=== PATIENT | female | born 1940 | race Caucasian/White ===

== ENCOUNTER 2017-08-27 06:58 | Emergency (ER) | payer MEDICARE, MEDICAID ==
--- NOTE | 2017-08-27 07:08 | Emergency Department Record ---
History of Present Illness - General Stated Complaint: FALL, SHOULDER PAIN Time Seen by Provider: 08/27/17 07:02 Source: EMS Mode of Arrival: EMS Limitations: No limitations - History of Present Illness Initial Comments: 76 yo female presents to ED following an unwitnessed fall in the shower. Patient reports pain to the left shoulder following her fall. Patient denies LOC or neck pain, refused cervical collar on examination. Patient reports pain to the medial left knee as well. Patient denies numbness, tingling, or focal weakness symptoms. MD Complaint: Fall Onset/Timin -: Minutes(s) When Fall Occurred: 1 hour [employer] Fall Witnessed: No Place Fall Occurred: Home Loss of Consciousness: None Prolonged Down Time?: No Symptoms Prior to Fall: None Location - Extremities: Left: Shoulder Severity: Moderate Quality: Aching - [place] Coma Scale Eye Response: (4) Open spontaneously Motor Response: (6) Obeys commands Verbal Response: (5) Oriented [place] Total: 15 - Related Data Home Medications Medication Instructions Recorded Confirmed Last Taken Albuterol Sulfate [Ventolin Hfa] 1 - 2 puff IH .EVERY 4-6 HOURS PRN 08/27/17 Unknown Amlodipine Besylate [Norvasc] 5 mg PO DAILY 08/27/17 08/27/17 Unknown Aspirin [Aspirin EC] 81 mg PO DAILY 08/27/17 08/27/17 Unknown Atorvastatin Calcium [Lipitor] 20 mg PO DAILY 08/27/17 08/27/17 Unknown Budesonide/Formoterol Fumarate 2 puff IH DAILY 08/27/17 08/27/17 Unknown [Symbicort 160-4.5 Mcg Inhaler] Cholecalciferol (Vitamin D3) 1,000 unit PO DAILY 08/27/17 08/27/17 Unknown [Vitamin D3] Colestipol HCl 1 gm PO BID 08/27/17 08/27/17 Unknown Docusate Sodium [Colace] 100 mg PO DAILY 08/27/17 08/27/17 Unknown Duloxetine HCl [Cymbalta] 60 mg PO DAILY 08/27/17 08/27/17 Unknown Ezetimibe [Zetia] 10 mg PO DAILY 08/27/17 08/27/17 Unknown Hydrochlorothiazide 25 mg PO DAILY 08/27/17 08/27/17 Unknown Insulin Aspart [Novolog] 1 unit SQ ASDIR 08/27/17 08/27/17 Unknown Insulin Detemir [Levemir] 60 units SQ DAILY 08/27/17 08/27/17 Unknown Ipratropium [place] [Atrovent Hfa] 2 puff IH TID 08/27/17 08/27/17 Unknown Isosorbide Dinitrate 5 mg PO BID 08/27/17 08/27/17 Unknown Levothyroxine Sodium [Synthroid] 25 mcg PO DAILY 08/27/17 08/27/17 Unknown Lisinopril 40 mg PO DAILY 08/27/17 08/27/17 Unknown Loratadine 10 mg PO DAILY 08/27/17 08/27/17 Unknown Mirabegron [Myrbetriq] 50 mg PO DAILY 08/27/17 08/27/17 Unknown Montelukast Sodium 10 mg PO DAILY 08/27/17 08/27/17 Unknown Multivitamin/Iron/Folic Acid 1 tab PO DAILY 08/27/17 08/27/17 Unknown [Centrum] Pramipexole Di-HCl [Mirapex] 0.25 mg PO QHS 08/27/17 08/27/17 Unknown Quetiapine Fumarate [Quetiapine 50 mg PO DAILY 08/27/17 08/27/17 Unknown Fumarate ER] Warfarin Sodium [Coumadin] 5 mg PO ASDIR 08/27/17 08/27/17 08/24/17 Warfarin Sodium [Coumadin] 7.5 mg PO ASDIR 08/27/17 08/27/17 08/24/17 Previous Rx's Medication Instructions Recorded Hydrocodone/Acetaminophen [Curlew 1 each PO Q8H PRN #15 tablet 08/27/17 5-325 Tablet] Allergies Allergy/AdvReac Type Severity Reaction Status Date / Time No Known Drug Allergies Allergy Verified 08/27/17 07:25 Review of Systems Constitutional: Denies: Chills, Fever, Malaise, Night sweats Eyes: Denies: Eye discharge, Eye pain ENT: Denies: Congestion, Ear pain, Epistaxis Respiratory: Denies: Cough, Dyspnea Cardiovascular: Denies: Chest pain, Dyspnea on exertion Endocrine: Denies: Fatigue, Heat or cold intolerance Gastrointestinal: Denies: Abdominal pain, Nausea, Vomiting Genitourinary: Denies: Incontinence, Retention Musculoskeletal: Reports: Arthralgia. Denies: Back pain, Gout, Joint swelling Skin: Denies: Bruising, Change in color Neurological: Denies: Abnormal gait, Confusion, Headache, Seizure Psychiatric: Denies: Anxiety Hematological/Lymphatic: Denies: Anemia, Blood Clots Physical Exam - General General Appearance: Alert, Oriented x3, Cooperative, Moderate distress Limitations: No limitations - Head Head exam: Atraumatic, Normocephalic, Normal inspection Head exam detail: negative: Abrasion, Contusion, Hernández's sign, General tenderness, Hematoma, Laceration - Eye Eye exam: Normal appearance, Conjunctival injection (left eye). negative: Periorbital swelling, Periorbital tenderness, Scleral icterus - ENT Ear exam: negative: Auricular hematoma, Auricular trauma Nasal Exam: negative: Active bleeding, Discharge, Dried blood, Foreign body Mouth exam: negative: Drooling, Laceration, Muffled voice, Tongue elevation - Neck Neck exam: Normal inspection, Other (patient refuses cervical collar on examination). negative: Meningismus, Tenderness - Respiratory Respiratory exam: Normal lung sounds bilaterally. negative: Rales, Respiratory distress, Rhonchi, Stridor - Cardiovascular Cardiovascular Exam: Regular rate, Normal rhythm, Normal heart sounds - GI/Abdominal GI/Abdominal exam: Soft. negative: Rebound, Rigid, Tenderness - Rectal Rectal exam: Deferred - exam: Deferred - Extremities Extremities exam: Other (Abrasion to the left knee). negative: Calf tenderness , Pedal edema, Tenderness - Back Back exam: Denies: CVA tenderness (R), CVA tenderness (L) - Neurological Neurological exam: Alert, Oriented X3. negative: CN II-XII intact, Motor sensory deficit - Psychiatric Psychiatric exam: Normal affect, Normal mood - Skin Skin exam: Normal color. negative: Abrasion Type of lesion: negative: abrasion Course - Reevaluation(s) Reevaluation #1: 08/27/17 07:24 repeat BP 98/44. Reevaluation #2: 08/27/17 07:36 EKG: NSR 68 IVCD, RBBB No acute ST-T wave changes Reevaluation #3: 08/27/17 07:57 Labs reviewed, INR 1.08, BUN 30 (at baseline), and are grossly unremarkable for an acute process. Reevaluation #4: 08/27/17 08:14 CT Brain: Chronic changes, nothing acute CT Cervical Spine: Degenerative changes, nothing acute Left shoulder: Proximal humerus fracture, non-displaced Left Knee: No acute process. Medical Decision Making - Lab Data Result diagrams: 08/27/17 07:15 08/27/17 07:15 Disposition Disposition: Discharge Clinical Impression: Multiple contusions Proximal humerus fracture Qualifiers: Encounter type: initial encounter Fracture type: closed Fracture morphology: unspecified fracture morphology Laterality: left Qualified Code(s): S42.202A - Unspecified fracture of upper end of left humerus, initial encounter for closed fracture Fall Qualifiers: Encounter type: initial encounter Qualified Code(s): W19.XXXA - Unspecified fall, initial encounter Disposition: Home, Self-Care Condition: (2) Stable Instructions: Proximal Humerus Fracture (ED) Additional Instructions: Return to ED if your symptoms worsen or if you have any concerns. Curlew 5 mg tablets every 8 hours as needed for pain symptoms. Follow-up with your family doctor in 3-5 days as directed. Prescriptions: Hydrocodone/Acetaminophen [Curlew 5-325 Tablet] 1 each PO Q8H PRN #15 tablet PRN Reason: Pain - Severe (8-10) Referrals: KARIN CROW [DOCTOR OF OSTEOPATH] - [facility] [Provider Group] Forms: Patient Portal Access Time of Disposition: 08:17 Quality - Quality Measures Quality Measures: N/A - Blood Pressure Screening Does Patient Have Any of the Following: No Blood Pressure Classification: Normal BP Reading Systolic Measurement: 101 Diastolic Measurement: 36 Screening for High Blood Pressure: < Normal BP, F/U Not Required > [G8783]
[2017-08-27] MEDS ORDERED: FENTANYL PF 100MCG/2ML VIAL IVP ONE (07:11)
[2017-08-27 07:22] LABS: BASO % 0.5 % (0-6); EOS % 0.8 % (0-6); GRAN % 61.4 % (47-80); HEMATOCRIT 37.6 % (35.0-47.0); HEMOGLOBIN 11.7 gm/dl (11.6-16.0); LYMPH % 28.6 % (16-45); MEAN CELL VOLUME 96.9 fl (81-97); MEAN CORPUSCULAR HEMOGLOBIN 30.2 pg (27-33); MEAN CORPUSCULAR HGB CONC 31.1 g/dl (32-36); MEAN PLATELET VOLUME 11.5 fl (7.4-10.4); MONO % 8.7 % (0-9); PLATELET COUNT 241 K/uL (130-400); RED BLOOD COUNT 3.88 M/uL (3.80-5.40); RED CELL DISTRIBUTION WIDTH 14.6 % (11.5-14.5); WHITE BLOOD COUNT W/O DIFF 8.4 K/uL (4.2-12.2)
[2017-08-27] MEDS ORDERED: 0.9 % SODIUM CHLORIDE 1000ML 500 ML IV SCH (07:30)
[2017-08-27 07:31] LABS: BLOOD UREA NITROGEN 30 mg/dL (8-23); CREATININE 0.9 mg/dL (0.5-0.9); EST GLOMERULAR FILTRATION RATE > 60 mL/min
[2017-08-27 07:32] LABS: TOTAL PROTEIN 6.9 g/dL (6.6-8.7)
[2017-08-27 07:33] LABS: INR 1.08; PROTHROMBIN TIME (PATIENT) 11.7 SECONDS (9.5-12.1)
[2017-08-27 07:34] LABS: GLUCOSE,RANDOM 210 mg/dL (74-109)
[2017-08-27 07:37] LABS: ALB/GLOB RATIO 1.2 (1.1-1.8); ALBUMIN 3.8 g/dL (4.0-5.0); ALKALINE PHOSPHATASE 64 U/L (35-104); ALT/SGPT 18 U/L (<33); AST/SGOT 18 U/L (10.0-35.0)
[2017-08-27] MEDS ORDERED: HYDROCODONE/APAP 5/325MG TABLET PO ONE (08:30)
--- NOTE | 2017-08-27 09:22 | CT SCAN REPORT ---
EXAM: CT SCAN CERVICAL SPINE WO CONTRAST HISTORY: FALL. TECHNIQUE: Axial CT images of the cervical spine with coronal and sagittal reconstructions. COMPARISON: None. FINDINGS: Evaluation of the spinal canal contents is limited due to CT technique. Vertebral body height is preserved. Minor anterolisthesis of C5 with respect to C6 likely on a degenerative basis. Alignment is otherwise preserved. Degenerative changes throughout the cervical spine. Surrounding soft tissues show vascular calcifications but are otherwise unremarkable. IMPRESSION: NO CT EVIDENCE FOR ACUTE C-SPINE ABNORMALITY. DEGENERATIVE CHANGE, ABOVE. JOB NUMBER: [id number] MTDD
--- NOTE | 2017-08-27 09:23 | RADIOLOGY REPORT ---
EXAM: SHOULDER, LEFT HISTORY: FALL. TECHNIQUE: Four-view left shoulder. COMPARISON: None. ENCOUNTER: Initial. FINDINGS: There is a comminuted, mildly displaced fracture deformity of the humeral neck with involvement of the greater tuberosity and extension of the fracture lines to the superior aspect of the humeral head. No definitive dislocation. Advanced degenerative changes. Osteopenia. IMPRESSION: COMMINUTED, MILDLY DISPLACED FRACTURE OF THE PROXIMAL HUMERAL NECK/ HEAD. JOB NUMBER: [id number] MTDD
--- NOTE | 2017-08-27 09:25 | RADIOLOGY REPORT ---
EXAM: KNEE, LEFT 3 VIEWS HISTORY: FALL. TECHNIQUE: Four-view left knee. COMPARISON: None. ENCOUNTER: Initial. FINDINGS: Osteopenia. Negative for acute fracture or dislocation. Mild degenerative changes. Vascular calcification. IMPRESSION: OSTEOPENIA WITH MILD DEGENERATIVE CHANGE. JOB NUMBER: [id number] MTDD
--- NOTE | 2017-08-27 09:28 | CT SCAN REPORT ---
EXAM: CT SCAN HEAD WO CONTRAST HISTORY: FALL. TECHNIQUE: CT of the brain without contrast. COMPARISON: None. FINDINGS: Globes are intact. Mucosal thickening of the ethmoid air cells. No displaced or depressed skull fracture. No intra- or extra-axial hemorrhage. CT is limited for evaluation of acute infarct. No CT evidence for large or territorial acute infarct. No mass or midline shift. Diffuse atrophy. Small vessel ischemic change. Age-indeterminate lacunar infarct of the left thalamus measuring 5.3 mm. Remote-appearing lacunar infarcts of the basal ganglia bilaterally. IMPRESSION: ATROPHY. SMALL VESSEL ISCHEMIC CHANGE. REMOTE-APPEARING LACUNAR INFARCTS OF THE BILATERAL BASAL GANGLIA. AGE-INDETERMINATE LACUNAR INFARCT, LEFT THALAMUS. JOB NUMBER: [id number] MTDD
== END 2017-08-27 09:22 | disposition home or self-care (01) ==
LOC: ER 06:58
DX: S42.292A Other displaced fracture of upper end of left humerus, initial encounter for closed fracture (principal); S80.02XA Contusion of left knee, initial encounter; M54.2 Cervicalgia; I10 Essential (primary) hypertension; E11.9 Type 2 diabetes mellitus without complications; Z79.4 Long term (current) use of insulin; Z79.01 Long term (current) use of anticoagulants; W18.2XXA Fall in (into) shower or empty bathtub, initial encounter; Y93.F1 Activity, caregiving, bathing; Y92.121 Bathroom in nursing home as the place of occurrence of the external cause
CPT/HCPCS: 99284 ×2; 85025; 85610; 80053; 73562; 73030; 72125; 70450; J3010

== ENCOUNTER 2017-12-16 09:07 | Emergency (ER) | payer MEDICARE, MEDICAID ==
[2017-12-16] MEDS ORDERED: 0.9 % SODIUM CHLORIDE 1000ML 1,000 ML IV PRN (09:38)
[2017-12-16] MEDS ORDERED: DEXTROSE 50 % IVP 50 ML DISP.SYRIN IVP ONE (10:02)
--- NOTE | 2017-12-16 10:02 | Emergency Department Record ---
History of Present Illness - General Chief complaint: Hypogylcemia Stated complaint: LOW BLOOD SUGAR Time Seen by Provider: 12/16/17 09:38 Mode of Arrival: EMS - History of Present Illness Initial comments: patient sleepy and not waking up and levemir given this am 75 units and her glucose was low and EMS called and the first reading ems got was 54 and ICAL gave some glucose gel but she was falling asleep and not taking it. one half of D50W given and she wake up prior to arrival to the ED but at my evaluation at 10 :00 she was falling asleep and glucose rechecked. 38 and amp ot D50W given IV Onset/Timin -: Hour(s) Associated Symptoms: Denies other symptoms - [place] Coma Scale Eye Response: (4) Open spontaneously Motor Response: (6) Obeys commands Verbal Response: (5) Oriented [place] Total: 15 - Related Data Allergies Allergy/AdvReac Type Severity Reaction Status Date / Time No Known Drug Allergies Allergy Verified 12/16/17 09:13 Travel Screening - Travel/Exposure Within Last 30 Days Have you traveled within the last 30 days?: No - Travel/Exposure Within Last Year Have you traveled outside the [place] in the last year?: No - Additonal Travel Details Have you been exposed to anyone with a communicable illness?: No - Travel Symptoms Symptom Screening: None Review of Systems Reviewed: No additional complaints except as noted below Constitutional: Reports: As per HPI. Denies: Chills, Fever, Malaise, Night sweats, Weakness, Weight change Eyes: Reports: As per HPI. Denies: Eye discharge, Eye pain, Photophobia, Vision change ENT: Reports: As per HPI. Denies: Congestion, Dental pain, Ear pain, Epistaxis , Hearing loss, Throat pain Respiratory: Reports: As per HPI. Denies: Cough, Dyspnea, Hemoptysis, Stridor, Wheezes Cardiovascular: Reports: As per HPI. Denies: Arrhythmia, Chest pain, Dyspnea on exertion, Edema, Murmurs, Orthopnea, Palpitations, Paroxysmal nocturnal dyspnea, Rheumatic Fever, Syncope Endocrine: Reports: As per HPI. Denies: Fatigue, Heat or cold intolerance, Polydipsia, Polyuria Gastrointestinal: Reports: As per HPI. Denies: Abdominal pain, Constipation, Diarrhea, Hematemesis, Hematochezia, Melena, Nausea, Vomiting Genitourinary: Reports: As per HPI. Denies: Abnormal menses, Discharge, Dyspareunia, Dysuria, Frequency, Hematuria, Incontinence, Retention, Urgency Musculoskeletal: Reports: As per HPI. Denies: Arthralgia, Back pain, Gout, Joint swelling, Myalgia, Neck pain Skin: Reports: As per HPI. Denies: Bruising, Change in color, Change in hair/ nails, Lesions, Pruritus, Rash Neurological: Reports: As per HPI. Denies: Abnormal gait, Confusion, Headache, Numbness, Paresthesias, Seizure, Tingling, Tremors, Vertigo, Weakness Psychiatric: Reports: As per HPI. Denies: Anxiety, Auditory hallucinations, Depression, Homicidal thoughts, Suicidal thoughts, Visual hallucinations Hematological/Lymphatic: Reports: As per HPI. Denies: Anemia, Blood Clots, Easy bleeding, Easy bruising, Swollen glands Past Medical History - SOCIAL HISTORY Smoking Status: Former smoker Alcohol Use: None Alcohol Use Comment: On drugs and alcohol from age 15 till 5 years ago. Drug Use: None - RESPIRATORY Hx Respiratory Disorders: Yes Hx COPD: Yes - CARDIOVASCULAR Hx Cardio Disorders: Yes Hx Hypertension: Yes Comment:: HTN. "heart leak" - NEURO Hx Neuro Disorders: No - GI Hx GI Disorders: No - Hx Genitourinary Disorders: No - ENDOCRINE Hx Endocrine Disorders: Yes Hx Diabetes: Yes - MUSCULOSKELETAL Hx Musculoskeletal Disorders: Yes Hx Arthritis: Yes - PSYCH Hx Psych Problems: No - HEMATOLOGY/ONCOLOGY Hx Hematology/Oncology Disorders: Yes Hx Cancer: Yes (breast) Comment:: breast ca Family Medical History Any Significant Family History?: Yes Hx Cancer: Mother *Cancer Comment: luekemia Hx Dementia: Father Hx Diabetes: Grandparents Hx Heart Disease: Father Physical Exam - General General Appearance: Alert, Oriented x3, Cooperative, No acute distress - Head Head exam: Normal inspection - Eye Eye exam: Normal appearance, PERRL Pupils: Normal accommodation - ENT ENT exam: Normal exam, Mucous membranes moist, Normal external ear exam, Normal orophraynx, TM's normal bilaterally Ear exam: Normal external inspection. negative: External canal tenderness Nasal Exam: Normal inspection. negative: Discharge, Sinus tenderness Mouth exam: Normal external inspection, Tongue normal Teeth exam: Normal inspection. negative: Dental caries Throat exam: Normal inspection. negative: Tonsillar erythema, Tonsillar exudate - Neck Neck exam: Normal inspection, Full ROM. negative: Tenderness - Respiratory Respiratory exam: Normal lung sounds bilaterally. negative: Respiratory distress - Cardiovascular Cardiovascular Exam: Regular rate, Normal rhythm, Normal heart sounds - GI/Abdominal GI/Abdominal exam: Soft, Normal bowel sounds. negative: Tenderness - Rectal Rectal exam: Deferred - exam: Deferred - Extremities Extremities exam: Normal inspection, Full ROM, Normal capillary refill. negative: Tenderness - Back Back exam: Reports: Normal inspection, Full ROM. Denies: Muscle spasm, Rash noted, Tenderness - Neurological Neurological exam: Alert, Normal gait, Oriented X3, Reflexes normal - Psychiatric Psychiatric exam: Normal affect, Normal mood - Skin Skin exam: Dry, Intact, Normal color, Warm Course Vital Signs 12/16/17 09:16 Temperature 97.6 F Pulse Rate 93 H Respiratory 20 Rate Blood Pressure 101/46 Pulse Ox 92 L - Reevaluation(s) Reevaluation #1: patient's sugar stabalized 12/16/17 12:36 Medical Decision Making - Lab Data Result diagrams: 12/16/17 10:00 12/16/17 10:00 Lab Results 12/16/17 Range/Units 09:16 POC Glucose 88 (70-110) mg/dL Disposition Clinical Impression: Hypoglycemia Diabetes mellitus Qualifiers: Diabetes mellitus type: type 2 Diabetes mellitus long-term insulin use: with superintendent terminal use Diabetes mellitus complication status: with hypoglycemia Diabetes mellitus complication detail: without coma Qualified Code(s): E11.649 - Type 2 diabetes mellitus with hypoglycemia without coma; Z79.4 - intermediate frame tender (current) use of insulin; Z79.4 - half-way (current) use of insulin; Z79.4 - intermediate frame tender ( current) use of insulin; Z79.4 - half-way (current) use of insulin Disposition: Home, Self-Care Condition: (1) Good Instructions: Hypoglycemia in a Person with Diabetes (ED) Additional Instructions: decrease levemir to 50 units tomorrow and check glucose befre giving levemir and if glucose is less than 100 hold levemir no novolog insulin today schedule an appointment to see me on monday at [facility] Forms: Patient Portal Access Time of Disposition: 12:40 Quality - Quality Measures Quality Measures: N/A - Blood Pressure Screening Does Patient Have Any of the Following: No Blood Pressure Classification: Normal BP Reading Systolic Measurement: 101 Diastolic Measurement: 46 Screening for High Blood Pressure: < Normal BP, F/U Not Required > [G8730]
[2017-12-16 10:09] LABS: HEMATOCRIT 40.4 % (35.0-47.0); HEMOGLOBIN 12.3 gm/dl (11.6-16.0); MEAN CELL VOLUME 99.3 fl (81-97); MEAN CORPUSCULAR HEMOGLOBIN 30.2 pg (27-33); MEAN CORPUSCULAR HGB CONC 30.4 g/dl (32-36); MEAN PLATELET VOLUME 10.6 fl (7.4-10.4); PLATELET COUNT 313 K/uL (130-400); RED BLOOD COUNT 4.07 M/uL (3.80-5.40); RED CELL DISTRIBUTION WIDTH 15.4 % (11.5-14.5)
[2017-12-16 10:15] LABS: WHITE BLOOD COUNT W/O DIFF 21.8 K/uL (4.2-12.2)
[2017-12-16 10:18] LABS: BLOOD UREA NITROGEN 22 mg/dL (8-23); CREATININE 0.8 mg/dL (0.5-0.9); EST GLOMERULAR FILTRATION RATE > 60 mL/min
[2017-12-16 10:19] LABS: INR 1.8; PROTHROMBIN TIME (PATIENT) 19.2 SECONDS (9.5-12.1)
[2017-12-16 11:16] LABS: GLUCOSE,RANDOM 40 mg/dL (74-109)
== END 2017-12-16 13:59 | disposition home or self-care (01) ==
LOC: ER 09:07
DX: E11.649 Type 2 diabetes mellitus with hypoglycemia without coma (principal); E11.65 Type 2 diabetes mellitus with hyperglycemia; Z79.4 Long term (current) use of insulin; J44.9 Chronic obstructive pulmonary disease, unspecified; I10 Essential (primary) hypertension; Z87.891 Personal history of nicotine dependence; Z85.3 Personal history of malignant neoplasm of breast
CPT/HCPCS: 36416; 80048; 82948; 83735; 85027; 85610; 96374; 99284

== ENCOUNTER 2018-03-01 22:49 | Emergency (ER) | payer MEDICARE, MEDICAID ==
[2018-03-01 23:58] LABS: BASO % 0.2 % (0-6); EOS % 0.8 % (0-6); GRAN % 63.1 % (47-80); HEMATOCRIT 36.1 % (35.0-47.0); HEMOGLOBIN 10.9 gm/dl (11.6-16.0); LYMPH % 27.1 % (16-45); MEAN CELL VOLUME 99.2 fl (81-97); MEAN CORPUSCULAR HEMOGLOBIN 29.9 pg (27-33); MEAN CORPUSCULAR HGB CONC 30.2 g/dl (32-36); MEAN PLATELET VOLUME 11.5 fl (7.4-10.4); MONO % 8.8 % (0-9); PLATELET COUNT 249 K/uL (130-400); RED BLOOD COUNT 3.64 M/uL (3.80-5.40); RED CELL DISTRIBUTION WIDTH 14.3 % (11.5-14.5); WHITE BLOOD COUNT W/O DIFF 8.6 K/uL (4.2-12.2)
[2018-03-02 00:04] LABS: CREATININE 1.2 mg/dL (0.5-0.9)
[2018-03-02] MEDS: CEFTRIAXONE SODIUM 1 GM in 0.9 % SODIUM CHLORIDE 100ML 100 ML IVPB ONE (01:15)
[2018-03-02 01:19] LABS: INR 2.2
--- NOTE | 2018-03-02 01:27 | Emergency Department Record ---
History of Present Illness - General Chief complaint: Abscess Stated complaint: RIGHT FOOT INFECTION Time Seen by Provider: 03/01/18 23:30 Source: Patient Mode of Arrival: Ambulatory Limitations: No limitations - History of Present Illness Initial comments: pt has an ulcer on her foot, diabetic, painful, MD complaint: Discoloration Onset/Timin -: Hour(s) Location: R foot Severity: Moderate Quality: Burning Consistency: Getting worse Treatments Prior to Arrival: None - Related Data Previous Rx's Medication Instructions Recorded Ceftriaxone Sodium [Rocephin] 1 gm IV DAILY #14 vial 03/02/18 Allergies Allergy/AdvReac Type Severity Reaction Status Date / Time No Known Drug Allergies Allergy Verified 12/16/17 09:13 Travel Screening - Travel/Exposure Within Last 30 Days Have you traveled within the last 30 days?: No Review of Systems Reviewed: No additional complaints except as noted below Constitutional: Reports: As per HPI. Denies: Chills, Fever, Malaise, Night sweats, Weakness, Weight change Eyes: Reports: As per HPI. Denies: Eye discharge, Eye pain, Photophobia, Vision change ENT: Reports: As per HPI. Denies: Congestion, Dental pain, Ear pain, Epistaxis , Hearing loss, Throat pain Respiratory: Reports: As per HPI. Denies: Cough, Dyspnea, Hemoptysis, Stridor, Wheezes Cardiovascular: Reports: As per HPI. Denies: Arrhythmia, Chest pain, Dyspnea on exertion, Edema, Murmurs, Orthopnea, Palpitations, Paroxysmal nocturnal dyspnea, Rheumatic Fever, Syncope Endocrine: Reports: As per HPI. Denies: Fatigue, Heat or cold intolerance, Polydipsia, Polyuria Gastrointestinal: Reports: As per HPI. Denies: Abdominal pain, Constipation, Diarrhea, Hematemesis, Hematochezia, Melena, Nausea, Vomiting Genitourinary: Reports: As per HPI. Denies: Abnormal menses, Discharge, Dyspareunia, Dysuria, Frequency, Hematuria, Incontinence, Retention, Urgency Musculoskeletal: Reports: As per HPI. Denies: Arthralgia, Back pain, Gout, Joint swelling, Myalgia, Neck pain Skin: Reports: As per HPI. Denies: Bruising, Change in color, Change in hair/ nails, Lesions, Pruritus, Rash Neurological: Reports: As per HPI. Denies: Abnormal gait, Confusion, Headache, Numbness, Paresthesias, Seizure, Tingling, Tremors, Vertigo, Weakness Psychiatric: Reports: As per HPI. Denies: Anxiety, Auditory hallucinations, Depression, Homicidal thoughts, Suicidal thoughts, Visual hallucinations Hematological/Lymphatic: Reports: As per HPI. Denies: Anemia, Blood Clots, Easy bleeding, Easy bruising, Swollen glands Past Medical History - SOCIAL HISTORY Smoking Status: Former smoker Alcohol Use: None Drug Use: None - RESPIRATORY Hx Respiratory Disorders: Yes Hx COPD: Yes - CARDIOVASCULAR Hx Cardio Disorders: Yes Hx Hypertension: Yes Comment:: HTN. "heart leak" - NEURO Hx Neuro Disorders: No - GI Hx GI Disorders: No - Hx Genitourinary Disorders: No - ENDOCRINE Hx Endocrine Disorders: Yes Hx Diabetes: Yes (DM2) Hx Thyroid Disease: Yes (Hypo) - MUSCULOSKELETAL Hx Musculoskeletal Disorders: Yes Hx Arthritis: Yes - PSYCH Hx Psych Problems: No - HEMATOLOGY/ONCOLOGY Hx Hematology/Oncology Disorders: Yes Hx Cancer: Yes (breast) Comment:: breast ca Family Medical History Any Significant Family History?: Yes Hx Cancer: Mother *Cancer Comment: luekemia Hx Dementia: Father Hx Diabetes: Grandparents Hx Heart Disease: Father Physical Exam - General General Appearance: Alert, Oriented x3, Cooperative, Mild distress - Head Head exam: Normal inspection - Eye Eye exam: Normal appearance, PERRL, EOMI Pupils: Normal accommodation - ENT ENT exam: Normal exam, Mucous membranes moist, Normal external ear exam, Normal orophraynx Ear exam: Normal external inspection. negative: External canal tenderness Nasal Exam: Normal inspection. negative: Discharge, Sinus tenderness Mouth exam: Normal external inspection, Tongue normal Teeth exam: Normal inspection. negative: Dental caries Throat exam: Normal inspection. negative: Tonsillar erythema, Tonsillar exudate - Neck Neck exam: Normal inspection, Full ROM. negative: Tenderness - Respiratory Respiratory exam: Normal lung sounds bilaterally. negative: Respiratory distress - Cardiovascular Cardiovascular Exam: Regular rate, Normal rhythm, Normal heart sounds - GI/Abdominal GI/Abdominal exam: Soft, Normal bowel sounds. negative: Tenderness - Rectal Rectal exam: Deferred - exam: Deferred - Extremities Extremities exam: Normal inspection, Full ROM, Normal capillary refill, Tenderness Image of Feet: 1 - erythema, tender, swelling, dark discharge - Back Back exam: Reports: Normal inspection, Full ROM. Denies: Muscle spasm, Rash noted, Tenderness - Neurological Neurological exam: Alert, CN II-XII intact, Normal gait, Oriented X3 - Psychiatric Psychiatric exam: Normal affect, Normal mood - Skin Skin exam: Dry, Intact, Normal color, Warm Course Vital Signs 03/01/18 03/02/18 22:55 01:19 Temperature 98.2 F 98.2 F Pulse Rate [ 70 80 Pulse Ox Probe] Respiratory 20 18 Rate Blood Pressure 101/52 116/54 [Right Arm] Pulse Ox 95 95 Medical Decision Making - Lab Data Result diagrams: 03/01/18 23:05 03/01/18 23:05 Lab Results 03/01/18 03/01/18 03/02/18 Range/Units 23:05 23:05 01:00 WBC 8.6 (4.2-12.2) K/uL RBC 3.64 L (3.80-5.40) M/uL Hgb 10.9 L (11.6-16.0) gm/dl Hct 36.1 (35.0-47.0) % MCV 99.2 H (81-97) fl MCH 29.9 (27-33) pg MCHC 30.2 L (32-36) g/dl RDW 14.3 (11.5-14.5) % Plt Count 249 (130-400) K/uL MPV 11.5 H (7.4-10.4) fl Gran % 63.1 (47-80) % Lymphocytes % 27.1 (16-45) % Monocytes % 8.8 (0-9) % Eosinophils % 0.8 (0-6) % Basophils % 0.2 (0-6) % PT 24.4 H (9.5-12.1) SECONDS INR 2.2 Sodium 142 (136-145) mmol/L Potassium 4.2 (3.4-4.5) mmol/L Chloride 98 (98-107) mmol/L Carbon Dioxide 28.0 (22-29) mmol/L Anion Gap 16.0 (7-16) BUN 32 H (8-23) mg/dL Creatinine 1.2 H (0.5-0.9) mg/dL Estimated GFR 46 mL/min Random Glucose 264 H (74-109) mg/dL Calcium 9.0 (8.8-10.2) mg/dL Disposition Disposition: Discharge Clinical Impression: Diabetic foot ulcer Qualifiers: Diabetic foot ulcer location: toe Diabetes mellitus type: type 2 Laterality: right Non-pressure ulcer stage: limited to breakdown of skin Qualified Code(s): E11.621 - Type 2 diabetes mellitus with foot ulcer; L97.511 - Non-pressure chronic ulcer of other part of right foot limited to breakdown of skin Disposition: Senior Living Care Facility Condition: (1) Good Instructions: Diabetic Foot Ulcers (ED) Additional Instructions: follow up with processor grain, visiting nurse and wound care JOS. return sooner if worse. elevate foot Prescriptions: Ceftriaxone Sodium [Rocephin] 1 gm IV DAILY #14 vial Quality - Quality Measures Quality Measures: N/A - Blood Pressure Screening Does Patient Have Any of the Following: No Blood Pressure Classification: Normal BP Reading Systolic Measurement: 116 Diastolic Measurement: 54 Screening for High Blood Pressure: < Normal BP, F/U Not Required > [G8783]
[2018-03-02 08:46] LABS: PROTHROMBIN TIME (PATIENT) 24.4 SECONDS (9.5-12.1)
--- NOTE | 2018-03-04 16:26 | RADIOLOGY REPORT ---
DATE: 03/02/2018 EXAM: RIGHT FOOT. HISTORY: Pain. TECHNIQUE: Three views of the right foot were performed. FINDINGS: There is severe degenerative change of the first metatarsophalangeal joint space. There is a large calcaneal spur. There is peripheral vascular disease. No lytic or blastic lesion. IMPRESSION: 1. DEGENERATIVE CHANGE OF THE FIRST METATARSOPHALANGEAL JOINT SPACE. 2. A LARGE CALCANEAL SPUR. 3. PERIPHERAL VASCULAR DISEASE. JOB NUMBER: [id number] [facility]
== END 2018-03-02 02:12 ==
LOC: ER 22:49
DX: E11.621 Type 2 diabetes mellitus with foot ulcer (principal); L97.511 Non-pressure chronic ulcer of other part of right foot limited to breakdown of skin; J44.9 Chronic obstructive pulmonary disease, unspecified; I10 Essential (primary) hypertension; Z79.01 Long term (current) use of anticoagulants; Z87.891 Personal history of nicotine dependence
CPT/HCPCS: 80048; 85025; 85610; 96365; 99284